=== PATIENT | female | born 1950 | race Caucasian/White ===

== ENCOUNTER 2017-12-18 11:04 | Inpatient (IN) | payer OTHER ==
[~2017-12-18] VITALS: Ht 157.5 cm; Wt 53.5 kg
[~2017-12-18 11:04] MED LIST: ANTIVERT12.5 MG; CAPOTEN12.5 MG; INDERAL LA80 MG; PENTOXIFYLLINE400 MG; PROPRANOLOL HCL20 MG; TESSALON PERLE100 MG PO; TUSSI PRES-B L120 M1 PO; VASOTEC10 MG; ZOCOR20 MG
== END 2017-12-22 09:58 | disposition home or self-care (01) | DRG 872 ==
LOC: ER 11:04 → SEC-K 12-19 06:13 → SURH 12-19 06:13 → MEDI 12-19 15:29 → SEC-K 12-19 15:29 → SURH 12-19 19:44 → SEC-K 12-19 21:27 → SURH 12-19 21:29
DX: A41.9 Sepsis, unspecified organism (principal); K29.00 Acute gastritis without bleeding; R42 Dizziness and giddiness; K52.89 Other specified noninfective gastroenteritis and colitis; S01.81XA Laceration without foreign body of other part of head, initial encounter; W18.39XA Other fall on same level, initial encounter; Y93.89 Activity, other specified; Y92.89 Other specified places as the place of occurrence of the external cause; Y99.8 Other external cause status; B34.9 Viral infection, unspecified

== ENCOUNTER 2017-12-26 08:01 | Emergency (ER) | payer OTHER ==
[~2017-12-26] VITALS: Ht 157.5 cm; Wt 53.5 kg
== END 2017-12-26 09:14 | disposition home or self-care (01) ==
LOC: ER 08:01
DX: Z48.02 Encounter for removal of sutures (principal)

== ENCOUNTER 2018-01-09 07:14 | Outpatient (CLI) | payer OTHER | END 2018-01-09 08:59 | disposition home or self-care (01) | LOC: LAB 07:14 | DX: I10 Essential (primary) hypertension (principal); E11.9 Type 2 diabetes mellitus without complications; E03.8 Other specified hypothyroidism; E78.2 Mixed hyperlipidemia; K92.1 Melena; D64.0 Hereditary sideroblastic anemia; M81.0 Age-related osteoporosis without current pathological fracture ==

== ENCOUNTER → 2018-01-09 | Outpatient (CLI) | payer OTHER | END | disposition home or self-care (01) | LOC: MAMO-SONO 08:39 | DX: Z12.31 Encounter for screening mammogram for malignant neoplasm of breast (principal); Z87.898 Personal history of other specified conditions; N62 Hypertrophy of breast ==

== ENCOUNTER 2018-01-18 12:47 | Outpatient (CLI) | payer OTHER | END 2018-01-18 13:00 | disposition home or self-care (01) | LOC: NUCLEAR 12:47 | DX: M81.0 Age-related osteoporosis without current pathological fracture (principal) ==

== ENCOUNTER 2018-07-11 09:51 | Outpatient (CLI) | payer OTHER ==
[~2018-07-11 09:51] MED LIST changes: +LISINOPRIL20 MG
== END 2018-07-11 09:55 | disposition home or self-care (01) ==
LOC: RAD 09:51
DX: M12.862 Other specific arthropathies, not elsewhere classified, left knee (principal); M12.861 Other specific arthropathies, not elsewhere classified, right knee; M17.0 Bilateral primary osteoarthritis of knee

== ENCOUNTER → 2018-07-18 | Outpatient (CLI) | payer OTHER | END | disposition home or self-care (01) | LOC: SONOGRAMA 10:10 → MAMO-SONO 10:15 | DX: M12.862 Other specific arthropathies, not elsewhere classified, left knee (principal); M17.12 Unilateral primary osteoarthritis, left knee ==

== ENCOUNTER 2019-02-06 23:52 | Emergency (ER) | payer OTHER ==
[~2019-02-06] VITALS: Ht 157.5 cm; Wt 56.2 kg
== END 2019-03-09 03:08 | disposition home or self-care (01) ==
LOC: ER 23:52
DX: R42 Dizziness and giddiness (principal)

== ENCOUNTER 2019-02-14 11:11 | Outpatient (CLI) | payer OTHER | END 2019-02-14 15:00 | disposition home or self-care (01) | LOC: LAB 11:11 | DX: R97.8 Other abnormal tumor markers (principal) ==

== ENCOUNTER 2019-02-23 08:38 | Outpatient (CLI) | payer OTHER | END 2019-02-23 08:45 | disposition home or self-care (01) | LOC: TOM 08:38 | DX: G45.8 Other transient cerebral ischemic attacks and related syndromes (principal); R41.2 Retrograde amnesia; R42 Dizziness and giddiness | CPT/HCPCS: 70470; Q9965 ==

== ENCOUNTER → 2019-03-01 | Outpatient (CLI) | payer OTHER | END | disposition home or self-care (01) | LOC: TOM 02-16 10:15 → MAMO-SONO 12:39 | DX: N63.11 Unspecified lump in the right breast, upper outer quadrant (principal); Z12.31 Encounter for screening mammogram for malignant neoplasm of breast; Z87.898 Personal history of other specified conditions ==

== ENCOUNTER 2019-08-07 13:27 | Outpatient (CLI) | payer OTHER | END 2019-08-07 15:22 | disposition home or self-care (01) | LOC: MRI 13:27 | DX: M25.561 Pain in right knee (principal); M25.562 Pain in left knee | CPT/HCPCS: 73721 ==

== ENCOUNTER 2019-10-02 07:27 | Outpatient (CLI) | payer OTHER | END 2019-10-02 07:28 | disposition home or self-care (01) | LOC: SONOGRAMA 07:27 → MAMO-SONO 07:45 | DX: R10.84 Generalized abdominal pain (principal) ==

== ENCOUNTER 2020-04-24 21:56 | Inpatient (IN) | payer OTHER ==
[~2020-04-24] VITALS: Ht 157.5 cm; Wt 61.2 kg
[2020-04-25] MEDS ORDERED: METOPROLOL SUCC50 MG PO (16:17)
== END 2020-04-30 08:08 | disposition home or self-care (01) | DRG 300 ==
LOC: ER 21:56 → SEC-K 04-25 07:48 → MEDI 04-25 07:48
PROVIDERS: ADMIT Internal Medicine Cardiovascular Disease; ATTEND Internal Medicine Cardiovascular Disease
PROC: BW28ZZZ Computerized Tomography (CT Scan) of Head (ICD-10-PCS; principal; 2020-04-25)
PROC: B24BZZZ Ultrasonography of Heart with Aorta (ICD-10-PCS; 2020-04-25)
PROC: 4A12X4Z Monitoring of Cardiac Electrical Activity, External Approach (ICD-10-PCS; 2020-04-25)
PROC: C21YYZZ Planar Nuclear Medicine Imaging of Heart using Other Radionuclide (ICD-10-PCS; 2020-04-29)
DX: I73.89 Other specified peripheral vascular diseases (principal); I47.0 Re-entry ventricular arrhythmia; I10 Essential (primary) hypertension; I08.0 Rheumatic disorders of both mitral and aortic valves; Z03.818 Encounter for observation for suspected exposure to other biological agents ruled out

== ENCOUNTER 2021-05-27 10:00 | Outpatient (CLI) | payer OTHER ==
[~2021-05-27 10:00] MED LIST changes: +METOPROLOL SUCC50 MG PO
== END 2021-05-27 10:15 | disposition home or self-care (01) ==
LOC: PPH VACUNA 10:00
PROVIDERS: ATTEND Emergency Medicine Pediatric Emergency Medicine
DX: Z23 Encounter for immunization (principal)

== ENCOUNTER 2021-06-10 09:22 | Outpatient (CLI) | payer OTHER | END 2021-06-10 09:35 | disposition home or self-care (01) | LOC: MAMO-SONO 09:22 | PROVIDERS: ATTEND Internal Medicine Cardiovascular Disease | DX: M75.32 Calcific tendinitis of left shoulder (principal); N64.59 Other signs and symptoms in breast; Z12.31 Encounter for screening mammogram for malignant neoplasm of breast ==

== ENCOUNTER 2023-01-26 10:03 | Outpatient (CLI) | payer OTHER | END 2023-01-26 10:07 | disposition home or self-care (01) | LOC: RAD 10:03 | PROVIDERS: ATTEND Internal Medicine Cardiovascular Disease | DX: M12.9 Arthropathy, unspecified (principal) ==

== ENCOUNTER 2024-09-11 08:29 | Outpatient (CLI) | payer OTHER | END 2024-09-11 08:31 | disposition home or self-care (01) | LOC: MAMO-SONO 08:29 | PROVIDERS: ATTEND Internal Medicine Cardiovascular Disease | DX: N60.11 Diffuse cystic mastopathy of right breast (principal); N60.12 Diffuse cystic mastopathy of left breast; Z12.31 Encounter for screening mammogram for malignant neoplasm of breast ==

== ENCOUNTER 2025-02-12 09:56 | Outpatient (CLI) | payer OTHER | END 2025-02-12 10:05 | disposition home or self-care (01) | LOC: SONOGRAMA 09:56 | PROVIDERS: ATTEND Internal Medicine Cardiovascular Disease | DX: M19.90 Unspecified osteoarthritis, unspecified site (principal) ==

== ENCOUNTER → 2025-02-20 | Emergency (ER) | payer OTHER ==
[~2025-02-20] VITALS: Ht 160 cm; Wt 63.5 kg
== END | disposition left against medical advice (07) ==
LOC: ER 02:07
DX: Z53.21 Procedure and treatment not carried out due to patient leaving prior to being seen by health care provider (principal)